=== PATIENT | female | born 1985 | race Caucasian/White ===

== ENCOUNTER 2024-06-12 09:24 | Inpatient (IN) | payer OTHER ==
[~2024-06-12] VITALS: Ht 157.5 cm; Wt 70.8 kg
[2024-06-12] MEDS ORDERED: MAGNESIUM SULFATE IN WATER 100 ML IV NR (11:30)
[2024-06-12] MEDS ORDERED: RINGERS SOLUTION,LACTATED 1,000 ML IV SCH (11:30)
[2024-06-12] MEDS ORDERED: BETAMETHASONE ACETATE,SOD PHOS 30 MG/5 ML ML IM NR (11:30)
[2024-06-12] MEDS ORDERED: MAGNESIUM SULFATE IN WATER 500 ML IV SCH (11:30)
[2024-06-12 12:23] LABS: HEMATOCRIT 33.1 % (36.0-45.00); HEMOGLOBIN 11.2 g/dL (12.0-15.00); MEAN CELL VOLUME 87.9 fL (80.00-100.00); MEAN CORPUSCULAR HEMOGLOBIN 29.7 pg (27.00-32.0); MEAN CORPUSCULAR HGB CONC 33.7 g/dl (32.0-36.0); PLATELET COUNT 198 K/uL (150-450); RED BLOOD COUNT 3.76 M/uL (4.00-6.00); RED CELL DISTRIBUTION WIDTH 13.6 % (11.5-14.5)
[2024-06-12 12:33] LABS: INR 0.94; PARTIAL THROMBOPLASTIN TIME 24.8 SECONDS (22.0-34.0); PROTHROMBIN TIME 9.9 SECONDS (9.0-11.5)
[2024-06-12 13:05] LABS: ALBUMIN 3.1 gm/dL (3.4-5.0); BILIRUBIN TOTAL 0.35 mg/dL (0.3-1.2); CALCIUM 9.3 mg/dL (8.5-10.1); CREATININE SERUM 0.61 mg/dL (0.55-1.02); GFR 108.63; GLOBULINA 3.9 G/DL (2.4-3.5); POTASSIUM 4.41 mEq/L (3.5-5.1)
[2024-06-12] MEDS ORDERED: VISTARIL25 MG PO (13:37)
[2024-06-12] MEDS ORDERED: BENADRYL25 MG PO (13:37)
[2024-06-12] MEDS ORDERED: PEPCID20 MG PO (13:38)
[2024-06-12] MEDS ORDERED: OSTERA TABLET1 EACH PO (13:39)
[2024-06-12] MEDS ORDERED: MAGNESIUM200 MG PO (13:39)
[2024-06-12] MEDS ORDERED: FOLIC ACID0.8 M1 PO (13:39)
[2024-06-12] MEDS ORDERED: FAMOtidine 20 MG TABLET PO SCH (17:00)
[2024-06-12] MEDS ORDERED: CEFOXITIN SODIUM 2,000 MG VIAL IV SCH (17:00)
[2024-06-12] MEDS ORDERED: ACETAMINOPHEN 500 MG GEL..CAP PO SCH (18:08)
[2024-06-12] MEDS ORDERED: hydrOXYzine PAMOATE 50 MG CAPSULE PO SCH (21:00)
[2024-06-13] MEDS ORDERED: MAGNESIUM SULFATE IN WATER 0.04 GM/ML IV.SOLN IV ONE (07:36)
[2024-06-13] MEDS ORDERED: BETAMETHASONE ACETATE,SOD PHOS 30 MG/5 ML ML IM NR (11:30)
[2024-06-13] MEDS ORDERED: DOCUSATE SODIUM 100MG CAP PO SCH (17:00)
[2024-06-13] MEDS ORDERED: DIPHENHYDRAMINE HCL 25 MG CAPSULE PO SCH (21:30)
[2024-06-14] MEDS ORDERED: NIFEDIPINE 30 MG TAB.SA.OSM PO SCH (09:00)
== END 2024-06-15 16:03 | disposition home or self-care (01) | DRG 833 ==
LOC: NST 09:24 → OB/GYN 11:07 → LDR 11:07 → OB/GYN 06-14 09:10
PROVIDERS: ADMIT Obstetrics & Gynecology Maternal & Fetal Medicine; ATTEND Obstetrics & Gynecology Maternal & Fetal Medicine
PROC: BY4FZZZ Ultrasonography of Third Trimester, Single Fetus (ICD-10-PCS; principal; 2024-06-12)
PROC: 4A1HXCZ Monitoring of Products of Conception, Cardiac Rate, External Approach (ICD-10-PCS; 2024-06-12)
DX: O60.03 Preterm labor without delivery, third trimester (principal); Z3A.34 34 weeks gestation of pregnancy; Z20.822 Contact with and (suspected) exposure to COVID-19

== ENCOUNTER 2024-06-22 23:56 | Inpatient (IN) | payer OTHER ==
[~2024-06-22] VITALS: Ht 157.5 cm; Wt 70.8 kg
[~2024-06-22 23:56] MED LIST: BENADRYL25 MG PO; FOLIC ACID0.8 M1 PO; MAGNESIUM200 MG PO; OSTERA TABLET1 EACH PO; PEPCID20 MG PO; VISTARIL25 MG PO
[2024-06-23] MEDS ORDERED: DIPHENHYDRAMINE HCL 25 MG CAPSULE PO SCH (00:15)
[2024-06-23] MEDS ORDERED: DIPHENHYDRAMINE HCL 25 MG CAPSULE PO ONE (00:15)
[2024-06-23] MEDS ORDERED: NIFEDIPINE 30 MG TAB.SA.OSM PO SCH (00:15)
[2024-06-23] MEDS ORDERED: hydrOXYzine PAMOATE 50 MG CAPSULE PO SCH (00:15)
[2024-06-23] MEDS ORDERED: hydrOXYzine PAMOATE 50 MG CAPSULE PO ONE (00:16)
[2024-06-23] MEDS ORDERED: NIFEDIPINE 30 MG TAB.SA.OSM PO ONE (00:16)
[2024-06-23] MEDS ORDERED: TYLENOL325 MG PO (00:31)
[2024-06-23] MEDS ORDERED: NIFEDIPINE20 MG PO (00:31)
[2024-06-23] MEDS ORDERED: COLACE100 MG PO (00:32)
[2024-06-23 00:33] LABS: HEMATOCRIT 30.9 % (36.0-45.00); HEMOGLOBIN 10.3 g/dL (12.0-15.00); MEAN CELL VOLUME 86.8 fL (80.00-100.00); MEAN CORPUSCULAR HGB CONC 33.5 g/dl (32.0-36.0); PLATELET COUNT 229 K/uL (150-450); RED BLOOD COUNT 3.56 M/uL (4.00-6.00); RED CELL DISTRIBUTION WIDTH 13.7 % (11.5-14.5)
[2024-06-23 00:44] LABS: INR < 0.93; PARTIAL THROMBOPLASTIN TIME 24.2 SECONDS (22.0-34.0); PROTHROMBIN TIME 9.8 SECONDS (9.0-11.5)
[2024-06-23 00:50] LABS: ALBUMIN 2.9 gm/dL (3.4-5.0); BILIRUBIN TOTAL 0.36 mg/dL (0.3-1.2); CALCIUM 8.8 mg/dL (8.5-10.1); CREATININE SERUM 0.64 mg/dL (0.55-1.02); GFR 102.78; GLOBULINA 3.7 G/DL (2.4-3.5); POTASSIUM 4.17 mEq/L (3.5-5.1); TOTAL PROTEIN 6.6 gm/dL (6.4-8.2)
[2024-06-23] MEDS ORDERED: RINGERS SOLUTION,LACTATED 1,000 ML IV SCH ×3 (09:00→23:45)
[2024-06-24] MEDS ORDERED: NIFEDIPINE 30 MG TAB.SA.OSM PO SCH
== END 2024-06-24 11:34 | disposition home or self-care (01) | DRG 833 ==
LOC: LDR 23:56 → OB/GYN 06-23 08:41
PROVIDERS: ADMIT Obstetrics & Gynecology; ATTEND Obstetrics & Gynecology
PROC: 4A1HXCZ Monitoring of Products of Conception, Cardiac Rate, External Approach (ICD-10-PCS; principal; 2024-06-22)
DX: O60.03 Preterm labor without delivery, third trimester (principal); Z3A.35 35 weeks gestation of pregnancy; Z20.822 Contact with and (suspected) exposure to COVID-19

== ENCOUNTER 2024-06-30 12:12 | Outpatient (CLI) | payer OTHER ==
[~2024-06-30 12:12] MED LIST changes: +COLACE100 MG PO; +NIFEDIPINE20 MG PO; +TYLENOL325 MG PO
== END 2024-06-30 13:04 | disposition home or self-care (01) ==
LOC: NST 12:12 → OBS/DEL 12:12
PROVIDERS: ATTEND Obstetrics & Gynecology
DX: Z34.83 Encounter for supervision of other normal pregnancy, third trimester (principal)

== ENCOUNTER 2024-07-10 11:10 | Outpatient (CLI) | payer OTHER ==
[2024-07-10] MEDS ORDERED: HYDROXYZINE PA100 MG PO (13:04)
[2024-07-10] MEDS ORDERED: BENADRYL ALLERG25 MG PO (13:04)
[2024-07-10] MEDS ORDERED: SENOKOT8.6 M1 PO (13:05)
[2024-07-10] MEDS ORDERED: PEPCID AC20 MG PO (13:05)
[2024-07-10] MEDS ORDERED: FA-80.8 M1 PO (13:05)
[2024-07-10] MEDS ORDERED: NOXIFOL-D32500 UNIT PO (13:06)
== END 2024-07-10 11:45 | disposition home or self-care (01) ==
LOC: NST 11:10
PROVIDERS: ATTEND Obstetrics & Gynecology Gynecology
DX: Z34.83 Encounter for supervision of other normal pregnancy, third trimester (principal)

== ENCOUNTER 2024-07-10 11:47 | Inpatient (IN) | payer OTHER ==
[~2024-07-10] VITALS: Ht 157.5 cm; Wt 1.8 kg
[2024-07-10 11:39] VITALS: BP 116/78
[2024-07-10] MEDS ORDERED: RINGERS SOLUTION,LACTATED 1,000 ML IV SCH ×2 (12:00→16:45)
[2024-07-10] MEDS ORDERED: OXYTOCIN 500 ML IV SCH (12:45)
[2024-07-10 12:55] LABS: HEMATOCRIT 35.8 % (36.0-45.00); MEAN CELL VOLUME 86.1 fL (80.00-100.00); MEAN CORPUSCULAR HEMOGLOBIN 28.8 pg (27.00-32.0); MEAN CORPUSCULAR HGB CONC 33.5 g/dl (32.0-36.0); PLATELET COUNT 266 K/uL (150-450); RED BLOOD COUNT 4.16 M/uL (4.00-6.00); RED CELL DISTRIBUTION WIDTH 14.1 % (11.5-14.5)
[2024-07-10] MEDS ORDERED: BENADRYL ALLERG25 MG PO (13:04)
[2024-07-10] MEDS ORDERED: HYDROXYZINE PA100 MG PO (13:04)
[2024-07-10] MEDS ORDERED: FA-80.8 M1 PO (13:05)
[2024-07-10] MEDS ORDERED: SENOKOT8.6 M1 PO (13:05)
[2024-07-10] MEDS ORDERED: PEPCID AC20 MG PO (13:05)
[2024-07-10] MEDS ORDERED: NOXIFOL-D32500 UNIT PO (13:06)
[2024-07-10] MEDS ORDERED: TERBUTALINE SULFATE 1 MG/ML AMPUL ONE (13:24)
[2024-07-10] MEDS ORDERED: CEFAZOLIN SODIUM 1,000 MG VIAL ONE (13:27)
[2024-07-10] MEDS ORDERED: CITRIC ACID/SODIUM CITRATE 30 ML BLIST.PACK PO ONE (13:28)
[2024-07-10] MEDS ORDERED: ERYTHROMYCIN BASE 1 GM TUBE OP ONE ×2 (13:34→16:00)
[2024-07-10] MEDS ORDERED: OXYTOCIN 10 UNITS/ML VIAL ONE ×2 (13:34→17:02)
[2024-07-10] MEDS ORDERED: CHLORHEXIDINE GLUCONATE 120 ML BOTTLE TOP ONE ×2 (13:37→16:00)
[2024-07-10] MEDS ORDERED: CITRIC ACID/SODIUM CITRATE 30 ML BLIST.PACK PO STA (13:46)
[2024-07-10] MEDS ORDERED: CEFAZOLIN SODIUM 1,000 MG VIAL IV STA (13:46)
[2024-07-10] MEDS ORDERED: TERBUTALINE SULFATE 1 MG/ML AMPUL SUBCUTANEO STA (13:46)
[2024-07-10 13:47] LABS: INR < 0.93; PARTIAL THROMBOPLASTIN TIME 26.5 SECONDS (22.0-34.0); PROTHROMBIN TIME 9.8 SECONDS (9.0-11.5)
[2024-07-10 14:24] LABS: BILIRUBIN TOTAL 0.22 mg/dL (0.3-1.2); CALCIUM 8.8 mg/dL (8.5-10.1); CREATININE SERUM 0.85 mg/dL (0.55-1.02); GFR 74.07; GLOBULINA 3.9 G/DL (2.4-3.5); POTASSIUM 5.07 mEq/L (3.5-5.1); TOTAL PROTEIN 6.9 gm/dL (6.4-8.2)
[2024-07-10] MEDS ORDERED: CEFAZOLIN SODIUM 1,000 MG VIAL IV SCH (15:45)
[2024-07-10] MEDS ORDERED: MORPHINE SULFATE 4 MG/ML VIAL IV ONE ×2 (15:50→16:20)
[2024-07-10] MEDS ORDERED: OXYTOCIN 10 UNITS/ML VIAL IV ONE (16:00)
[2024-07-10] MEDS ORDERED: OXYTOCIN 1,000 ML IV ONE (16:45)
[2024-07-10] MEDS ORDERED: MORPHINE SULFATE 4 MG/ML CARTRIDGE IV PRN (16:45)
[2024-07-10] MEDS ORDERED: MEPERIDINE HCL 25 MG/ML AMPUL IV ONE (16:50)
[2024-07-10] MEDS ORDERED: GABAPENTIN 300 MG CAPSULE PO SCH (17:00)
[2024-07-10] MEDS ORDERED: SIMETHICONE 125 MG CAPSULE PO SCH (17:00)
[2024-07-10] MEDS ORDERED: KETOROLAC TROMETHAMINE 30 MG VIAL ONE (17:02)
[2024-07-10 17:39] VITALS: BP 127/79
[2024-07-10] MEDS ORDERED: ONDANSETRON HCL 2 MG/ML VIAL IV SCH (18:00)
[2024-07-10] MEDS ORDERED: ACETAMINOPHEN 500 MG GEL..CAP PO SCH (18:00)
[2024-07-10] MEDS ORDERED: KETOROLAC TROMETHAMINE 30 MG VIAL IV SCH (18:00)
[2024-07-11 01:08] VITALS: BP 133/74
[2024-07-11 05:45] VITALS: BP 130/79
[2024-07-11 06:49] LABS: HEMATOCRIT 29.3 % (36.0-45.00); HEMOGLOBIN 9.8 g/dL (12.0-15.00); MEAN CELL VOLUME 86.3 fL (80.00-100.00); MEAN CORPUSCULAR HEMOGLOBIN 28.9 pg (27.00-32.0); MEAN CORPUSCULAR HGB CONC 33.5 g/dl (32.0-36.0); PLATELET COUNT 169 K/uL (150-450); RED BLOOD COUNT 3.39 M/uL (4.00-6.00); RED CELL DISTRIBUTION WIDTH 14.1 % (11.5-14.5)
[2024-07-11] MEDS ORDERED: OxyCODONE HCL 5 MG TABLET (ROXICODONE) PO PRN (08:00)
[2024-07-11] MEDS ORDERED: KETOROLAC TROMETHAMINE 10 MG TABLET PO SCH (08:00)
[2024-07-11] MEDS ORDERED: DOCUSATE SODIUM 100MG CAP PO SCH (09:00)
[2024-07-11 09:27] VITALS: BP 134/80
[2024-07-11 11:02] VITALS: BP 134/80
[2024-07-11 16:08] VITALS: BP 129/71
[2024-07-12 01:15] VITALS: BP 140/84
[2024-07-12 09:00] VITALS: BP 137/83
[2024-07-12 16:00] VITALS: BP 128/71
[2024-07-13 01:00] VITALS: BP 118/74
[2024-07-13 08:22] VITALS: BP 121/85
[2024-07-13 12:20] LABS: HEMATOCRIT 29.8 % (36.0-45.00); HEMOGLOBIN 9.9 g/dL (12.0-15.00); MEAN CELL VOLUME 86.9 fL (80.00-100.00); MEAN CORPUSCULAR HGB CONC 33.4 g/dl (32.0-36.0); PLATELET COUNT 227 K/uL (150-450); RED BLOOD COUNT 3.43 M/uL (4.00-6.00); RED CELL DISTRIBUTION WIDTH 14.2 % (11.5-14.5)
[2024-07-13] MEDS ORDERED: CLINDAMYCIN HCL 300 MG CAPSULE PO SCH (13:00)
[2024-07-13 16:00] VITALS: BP 135/70
[2024-07-13 20:00] VITALS: BP 135/85
[2024-07-14] VITALS: BP 136/82
[2024-07-14 09:08] VITALS: BP 143/80
[2024-07-14] MEDS ORDERED: IRON FUM,PS/FOLIC/BCOMP,C NO.9 1 CAP CAPSULE PO SCH (12:00)
== END 2024-07-14 14:28 | disposition home or self-care (01) | DRG 785 ==
LOC: LDR 11:47 → OB/GYN 15:46
PROVIDERS: Obstetrics & Gynecology; Obstetrics & Gynecology Gynecology; ADMIT Obstetrics & Gynecology; ATTEND Obstetrics & Gynecology
PROC: 0UB70ZZ Excision of Bilateral Fallopian Tubes, Open Approach (ICD-10-PCS; 2024-07-10)
PROC: 4A1HXCZ Monitoring of Products of Conception, Cardiac Rate, External Approach (ICD-10-PCS; 2024-07-10)
PROC: 10D00Z1 Extraction of Products of Conception, Low, Open Approach (ICD-10-PCS; principal; 2024-07-10 15:30)
DX: O36.8130 Decreased fetal movements, third trimester, not applicable or unspecified (principal); O36.5930 Maternal care for other known or suspected poor fetal growth, third trimester, not applicable or unspecified; Z3A.38 38 weeks gestation of pregnancy; Z37.0 Single live birth; Z30.2 Encounter for sterilization; Z20.822 Contact with and (suspected) exposure to COVID-19